=== PATIENT | female | born 1995 | race Caucasian/White ===

== ENCOUNTER 2020-06-09 15:09 | Emergency (ER) | payer OTHER ==
[2020-06-09] MEDS ORDERED: CIPRODEX OTIC7.5 ML EYELF (17:47)
== END 2020-06-09 18:03 | disposition home or self-care (01) ==
LOC: FER 15:09
DX: S05.02XA Injury of conjunctiva and corneal abrasion without foreign body, left eye, initial encounter (principal); W50.0XXA Accidental hit or strike by another person, initial encounter; Y92.009 Unspecified place in unspecified non-institutional (private) residence as the place of occurrence of the external cause
CPT/HCPCS: 99283